=== PATIENT | male | born 1970 | race Caucasian/White ===

== ENCOUNTER → 2021-05-17 13:47 | Outpatient (CLI) | payer BC, SELFPAY ==
--- NOTE | 2021-05-17 13:56 | BD_ITS ---
STUDY: DUAL ENERGY X-RAY ABSORPTIOMETRY / DXA REASON FOR EXAM: Male, 50 years old. M17.11 TECHNIQUE: Bone Mineral Density (BMD) measurements of lumbar spine and bilateral hips were obtained. COMPARISON: None. FINDINGS: Lumbar Spine (L1-L4): g/cm2 (0.936) / T-score (-1.1) / Z-score (-0.8) Findings are suggestive of osteopenia with a low fracture risk. Left Femur Total: g/cm2 (0.932) / T-score (-0.7) / Z-score (-0.3) Left Femoral Neck: g/cm2 (0.700) / T-score (-1.7) / Z-score (-0.9) Right Femur Total: g/cm2 (0.883) / T-score (-1.0) / Z-score (-0.7) Right Femoral Neck: g/cm2 (0.697) / T-score (-1.7) / Z-score (-1.0) BD/Dexa Bone Density Study IMPRESSION: The patient is considered osteopenic as outlined below according to World Rafael Organization (WHO) criteria with a moderate fracture risk. Reference Information: The T-score is the number of standard deviations above or below the standard which is normal for young adults at their peak bone mineral density. The World Health Organization (WHO) interprets the T-scores as follows: Above -1 Normal bone density Between -1 and -2.5 Osteopenia Equal to / or below -2.5 Osteoporosis As a practical clinical guideline, osteopenia may be graded as follows: Mild -1 through -1.5 Moderate -1.6 through -2.0 Severe -2.1 through -2.4 The Z-score is the number of standard deviations above or below age-matched controls. A Z-score of less than -1.5 would be considered abnormal. References: 1. NIH Osteoporosis and Related Bone Diseases www osteo.org 2. International Society for Clinical Densitometry www iscd.org 3. National Osteoporosis Foundation www nof.org Electronically Signed: Job Fan MD at 9:34 EDT , Service support ,
== END ==
PROVIDERS: PCP Family Medicine; Visit Provider Orthopaedic Surgery
DX: M17.11 Unilateral primary osteoarthritis, right knee (principal); S72.434A Nondisplaced fracture of medial condyle of right femur, initial encounter for closed fracture
CPT/HCPCS: 77080